=== PATIENT | male | born 1960 | race African-American/Black ===

== ENCOUNTER 2019-06-10 11:37 | Emergency (ER) | payer MEDICAID ==
[~2019-06-10] VITALS: Ht 167.6 cm; Wt 97.0 kg
[2019-06-10] MEDS ORDERED: ONDANSETRON HCL 4MG/2ML INJ IV STA (12:14)
[2019-06-10] MEDS ORDERED: VISCOUS LIDOCAINE 2% 15 ML UDC PO STA (12:14)
[2019-06-10] MEDS ORDERED: MAGNESIUM/ALUMINUM HYDROXIDE/SIMETHICONE 30ML UDC PO STA (12:14)
[2019-06-10] MEDS ORDERED: FAMOTIDINE 20MG/2ML VIAL IV STA (12:14)
[2019-06-10] MEDS ORDERED: SODIUM CHLORIDE 0.9% 1,000 ML IV ONE ×2 (12:14→12:30)
[2019-06-10] MEDS ORDERED: DICYCLOMINE HCL 10MG/ML 2ML AMP IM ONE (12:15)
[2019-06-10 12:46] LABS: BASOPHILS % 0.6 % (0.0-2.0); EOSINOPHILS % 4.5 % (0.0-5.0); HEMATOCRIT. 43.7 % (42.0-52.0); HEMOGLOBIN. 14.3 g/dL (14.0-18.0); LYMPHOCYTES % 28.3 % (20.0-50.0); MEAN CORPUSCULAR HEMOGLOBIN 27.7 pg (28.0-32.0); MEAN CORPUSCULAR VOLUME 84.6 fL (80.0-94.0); MEAN PLATELET VOLUME 7.9 fl (7.4-10.4); MONOCYTES % 10.6 % (2.0-8.0); PLATELET 211 x1000/uL (130-400); RED BLOOD CELL COUNT 5.17 mill/uL (4.7-6.1); RED CELL DISTRIBUTION WIDTH 15.2 % (11.6-14.6)
[2019-06-10 12:56] LABS: CHLORIDE 107 mEq/L (98-107)
[2019-06-10 13:54] VITALS: BP 118/69
== END 2019-06-10 14:16 | disposition home or self-care (01) ==
LOC: ER 11:37
DX: R00.1 Bradycardia, unspecified (principal); I10 Essential (primary) hypertension; E78.00 Pure hypercholesterolemia, unspecified; F12.10 Cannabis abuse, uncomplicated
CPT/HCPCS: 36415; 71045; 80053; 83880; 84484; 85025; 93005; 99284; J7030

== ENCOUNTER 2019-08-17 10:49 | Emergency (ER) | payer MEDICAID ==
[~2019-08-17] VITALS: Ht 167.6 cm; Wt 100.0 kg
[2019-08-17 11:25] VITALS: BP 176/102
== END 2019-08-17 12:51 | disposition home or self-care (01) ==
LOC: ER 10:49
DX: I10 Essential (primary) hypertension (principal); E78.00 Pure hypercholesterolemia, unspecified; F12.90 Cannabis use, unspecified, uncomplicated
CPT/HCPCS: 99282